=== PATIENT | male | born 1955 | race Caucasian/White ===

== ENCOUNTER 2018-01-28 19:35 | Emergency (ER) | payer OTHER ==
[~2018-01-28] VITALS: Ht 177.8 cm; Wt 73.6 kg
[2018-01-28 20:04] VITALS: BP 115/74; Ht 177.8 cm; Wt 73.6 kg
[2018-01-28 21:31] LABS: ALKALINE PHOSPHATASE 77 U/L (46-116); ALT (SGPT) 63 U/L (10-68); CALCIUM 9.3 mg/dL (8.5-10.1); CARBON DIOXIDE 26.1 mmol/L (21.0-32.0); CHLORIDE - SERUM 101 mmol/L (98-107); CREATININE - SERUM 0.8 mg/dL (0.6-1.3); MAGNESIUM - SERUM 1.9 mg/dL (1.8-2.4); PRO BNP 191 pg/mL (0-125); PROTEIN - SERUM 8.1 g/dL (6.4-8.2); SODIUM 138 mmol/L (136-145); UREA NITROGEN 8 mg/dL (7-18); eGFR NON AFRICAN AMERICAN > 90 mL/min (90-120)
[2018-01-28 21:32] LABS: CALC OSMOLALITY 275 mosm/kg (275-300); GLUCOSE 142 mg/dL (74-106)
[2018-01-28 21:33] LABS: POTASSIUM - SERUM 2.9 mmol/L (3.5-5.1)
[2018-01-28 21:50] LABS: BASOPHILS 0.2 % (0-2); EOSINOPHILS 1.6 % (0-7); HEMATOCRIT 44.9 % (42.0-54.0); IMMATURE GRANULOCYTES 0.2 % (0-5); LYMPHOCYTES 20.9 % (15-50); MCH 34.8 pg (26.0-34.0); MCHC 35.6 g/dL (31.0-37.0); MCV 97.6 fL (80.0-100.0); MONOCYTES 9.7 % (2-11); NEUTROPHILS 67.4 % (40-80); RDW 13.8 % (11.5-14.5); WBC 5.5 10x3/uL (4.8-10.8)
[2018-01-28 21:54] LABS: PLATELET COUNT 58 10x3/uL (130-400)
[2018-01-28 22:08] LABS: PLATELET ESTIMATE DECREASED
== END 2018-01-28 21:45 | disposition left against medical advice (07) ==
LOC: D.ER 19:35
PROVIDERS: Family Medicine
DX: F10.129 Alcohol abuse with intoxication, unspecified (principal); G93.40 Encephalopathy, unspecified; E56.9 Vitamin deficiency, unspecified; R44.3 Hallucinations, unspecified; R53.1 Weakness; J44.9 Chronic obstructive pulmonary disease, unspecified; I50.9 Heart failure, unspecified; K21.9 Gastro-esophageal reflux disease without esophagitis; F17.200 Nicotine dependence, unspecified, uncomplicated

== ENCOUNTER 2018-05-11 18:34 | Emergency (ER) | payer OTHER ==
[~2018-05-11] VITALS: Ht 177.8 cm; Wt 70.8 kg
[2018-05-11 18:38] VITALS: Ht 177.8 cm; Wt 70.8 kg
[2018-05-11 19:17] LABS: BASOPHILS 0.1 % (0-2); EOSINOPHILS 0.4 % (0-7); HEMATOCRIT 40.3 % (42.0-54.0); HEMOGLOBIN 14.1 g/dL (13.5-17.5); IMMATURE GRANULOCYTES 0.2 % (0-5); LYMPHOCYTES 14.4 % (15-50); MCH 33.8 pg (26.0-34.0); MCV 96.6 fL (80.0-100.0); MEAN PLATELET VOLUME 9.3 fL (7.4-10.4); MONOCYTES 9.9 % (2-11); PLATELET COUNT 199 10x3/uL (130-400); RBC 4.17 10x6/uL (4.20-6.10); RDW 12.9 % (11.5-14.5); WBC 11.3 10x3/uL (4.8-10.8)
[2018-05-11 19:30] LABS: ALBUMIN 3.3 g/dL (3.4-5.0); ALKALINE PHOSPHATASE 53 U/L (46-116); ALT (SGPT) 18 U/L (10-68); BILIRUBIN - TOTAL 1.01 mg/dL (0.2-1.3); CALC OSMOLALITY 274 mosm/kg (275-300); CALCIUM 8.3 mg/dL (8.5-10.1); CARBON DIOXIDE 25.5 mmol/L (21.0-32.0); CHLORIDE - SERUM 102 mmol/L (98-107); CREATININE - SERUM 0.9 mg/dL (0.6-1.3); GLUCOSE 112 mg/dL (74-106); POTASSIUM - SERUM 3.6 mmol/L (3.5-5.1); PROTEIN - SERUM 7.6 g/dL (6.4-8.2); SODIUM 138 mmol/L (136-145); UREA NITROGEN 7 mg/dL (7-18); eGFR NON AFRICAN AMERICAN > 90 mL/min (90-120)
[2018-05-11] MEDS ORDERED: LEVAQUIN750 MG PO (20:02)
[2018-05-11] MEDS ORDERED: STERAPRED DS 1210 MG PO (20:02)
[2018-05-11 20:25] VITALS: BP 133/79
== END 2018-05-11 20:25 | disposition home or self-care (01) ==
LOC: D.ER 18:34
PROVIDERS: Family Medicine
DX: J18.9 Pneumonia, unspecified organism (principal); J44.1 Chronic obstructive pulmonary disease with (acute) exacerbation; R09.89 Other specified symptoms and signs involving the circulatory and respiratory systems